=== PATIENT | female | born 1980 | race Hispanic/Latino ===

== ENCOUNTER 2017-03-02 18:48 | Emergency (ER) | payer OTHER ==
[2017-03-02 18:48] VITALS: BMI 26.4
[2017-03-02 19:40] LABS: RBC URINE 8 /hpf (0-3); TRANSITIONAL EPITHIAL < 1 /hpf (0-3); URINE BACTERIA OCC (<OCC); URINE BILIRUBIN NEGATIVE (NEGATIVE); URINE BLOOD 3+ (NEGATIVE); URINE COLOR Yellow (YELLOW); URINE GLUCOSE (UA) NORMAL (Normal); URINE KETONE TRACE mg/dL (NEGATIVE); URINE LEUKOCYTE ESTERASE NEG Leu/uL (Negative); URINE PROTEIN 1+ mg/dL (NEGATIVE); URINE UROBILINOGEN NORMAL mg/dL (0.2-1.0); WBC URINE 3 /hpf (0-5)
--- NOTE | 2017-03-02 20:00 | C.PDOC ---
History Of Present Illness 36 y/o female presents to ED with complaints of vaginal bleeding. Patient states her menses started on 02/10/17 then stopped, returned on 02/17/17 and has not stopped bleeding since then. Patient reports using 4-6 pads daily for the bleeding and has developed abdominal pain with associated cramping. Patient denies chills, fever N/V/D or any other complaints at this time. Time Seen by Provider: 03/02/17 20:00 Chief Complaint (Nursing): Female Genitourinary History Per: Patient History/Exam Limitations: no limitations Onset/Duration Of Symptoms: Days Current Symptoms Are (Timing): Still Present Quality Of Discomfort: Cramping Associated Symptoms: denies: Fever, Chills, Nausea, Vomiting Recent travel outside of the [place]: No Additional History Per: Patient Abnormal Vaginal Bleeding: Yes Past Medical History Reviewed: Historical Data, Nursing Documentation, Vital Signs Vital Signs: Last Vital Signs Temp 98.6 F 03/02/17 18:58 Pulse 95 H 03/02/17 18:58 Resp 20 03/02/17 18:58 BP 119/77 03/02/17 18:58 Pulse Ox 97 03/02/17 20:22 - Medical History PMH: Hypothyroidism Denies: Chronic Kidney Disease Surgical History: Endoscopy Family History: States: Unknown Family Hx - Social History Hx Tobacco Use: No Hx Alcohol Use: No Hx Substance Use: No - Immunization History Hx Tetanus Toxoid Vaccination: No Hx Influenza Vaccination: No Hx Pneumococcal Vaccination: No Review Of Systems Constitutional: Negative for: Fever, Chills Gastrointestinal: Positive for: Abdominal Pain. Negative for: Nausea, Vomiting , Diarrhea Genitourinary: Positive for: Vaginal Bleeding. Negative for: Dysuria Musculoskeletal: Negative for: Back Pain Skin: Negative for: Rash Neurological: Negative for: Headache Physical Exam - Physical Exam Appears: Non-toxic, No Acute Distress Skin: Warm Head: Normacephalic Oral Mucosa: Moist Neck: Supple Cardiovascular: Rhythm Regular, No Murmur Respiratory: No Rales, No Rhonchi, No Wheezing Gastrointestinal/Abdominal: Tenderness (Suprapubic Tenderness), No Guarding, No Rebound Back: No CVA Tenderness Extremity: No Pedal Edema, Capillary Refill (<2 seconds) Extremity: Bilateral: Atraumatic Neurological/Psych: Oriented x3, Normal Speech, Normal Cognition Gait: Steady ED Course And Treatment - Laboratory Results Result Diagrams: 03/02/17 20:22 03/02/17 20:22 O2 Sat by Pulse Oximetry: 97 (RA) Pulse Ox Interpretation: Normal Medical Decision Making Medical Decision Making: Upon provider reevaluation patient is feeling better, is medically stable, and requires no further treatment in the ED at this time. Patient will be discharged home . Counseling was provided and all questions were answered regarding diagnosis and need for follow up with the referred clinic. There is agreement to discharge plan. Return if symptoms persist or worsen. Disposition Counseled Patient/Family Regarding: Studies Performed, Diagnosis, Need For Followup - Disposition Referrals: Huseyin Donohue MD [Medical Doctor] - Disposition: HOME/ ROUTINE Disposition Time: 20:00 Condition: FAIR Instructions: Dysfunctional Uterine Bleeding (ED) - Clinical Impression Clinical Impression: DUB (dysfunctional uterine bleeding) - Scribe Statement The provider has reviewed the documentation as recorded by the Scribmarcelo Jefferson All medical record entries made by the Scribe were at my direction and personally dictated by me. I have reviewed the chart and agree that the record accurately reflects my personal performance of the history, physical exam, medical decision making, and the department course for this patient. I have also personally directed, reviewed, and agree with the discharge instructions and disposition.
[2017-03-02] MEDS ORDERED: Sodium Chloride 0.9% 1,000 ML IV ONE (20:01)
[2017-03-02] MEDS ORDERED: Sodium Chloride 0.9% 1,000 ML ONE (20:24)
[2017-03-02 20:34] LABS: CHLORIDE 103 mmol/L (98-107)
[2017-03-02 20:35] LABS: POTASSIUM 3.6 mmol/L (3.6-5.2); SODIUM 141 mmol/L (132-148)
[2017-03-02 20:37] LABS: ALB/GLOB RATIO 1.3 (1.0-2.1); AST/SGOT 23 U/L (14-36); BILIRUBIN,TOTAL 0.6 mg/dL (0.2-1.3); CARBON DIOXIDE 28 mmol/L (22-30); GFR AFRICAN-AMERICAN > 60; TOTAL PROTEIN 7.6 g/dL (6.3-8.3)
[2017-03-02 20:38] LABS: ALKALINE PHOSPHATASE 54 U/L (38-126); ALT/SGPT 26 U/L (9-52); BLOOD UREA NITROGEN 19 mg/dL (7-17); CALCIUM 8.9 mg/dl (8.6-10.4); GLUCOSE,RANDOM 95 mg/dL (65-105)
[2017-03-02 20:39] LABS: BASO % 0.2 % (0.0-2.0); EOS # 0.2 K/uL (0.0-0.7); EOS % 2.4 % (0.0-4.0); LYMPH # 2.6 K/uL (1.0-4.3); LYMPH % 26.7 % (20.0-40.0); MEAN CELL VOLUME 90.7 fL (81.0-99.0); MEAN CORPUSCULAR HEMOGLOBIN 29.9 pg (27.0-31.0); MEAN PLATELET VOLUME 8.5 fL (7.2-11.7); MONO # 0.7 K/uL (0.0-0.8); MONO % 7.3 % (0.0-10.0); RED CELL DISTRIBUTION WIDTH 12.2 % (11.5-14.5); WHITE BLOOD COUNT 9.9 K/uL (4.8-10.8)
[2017-03-02 22:19] VITALS: BP 107/70; PULSE 74; RESP 18; TEMP 98; O2SAT 99
--- NOTE | 2017-03-03 10:13 | US ---
Pelvic ultrasound History: Dysfunctional uterine bleeding. Comparison: None available. Technique: Real-time sonography was performed through the pelvis utilizing transabdominal and transvaginal techniques. Findings: Uterus: 8.3 x 4.2 x 5.3 centimeters. Heterogeneous echotexture. Anteverted. Endometrium measures 4.2 millimeters, within limits. At the level of the cervix, there are multiple complex heterogeneous cystic foci measuring up to 1.7 x 1.3 x 1.5 centimeters and 1.3 x 1.0 x 1.2 centimeters which may represent complex nabothian cysts. Clinical correlation. Right ovary: 2.9 x 1.7 x 2.3 centimeters. Normal flow. Left ovary: 2.8 x 2.3 x 2.5 centimeters. Normal flow. Hypoechoic cyst measuring 1.4 x 1.8 x 1.4 centimeters. Impression: Suggestion of complex nabothian cysts at the level of the cervix. Clinical correlation. 1.8 centimeter left ovarian cyst. These findings were preliminarily reported at 9:38 p.m. on 03/02/[address] Xiomara Reddy from [facility].
== END 2017-03-02 22:23 | disposition home or self-care (01) ==
LOC: C.ER 18:48
DX: N93.8 Other specified abnormal uterine and vaginal bleeding (principal)
CPT/HCPCS: 76830; 76856; 80053; 81001; 84703; 85025; 86850; 86900; 96361; 96374; 99284; J1885; J7040

== ENCOUNTER 2017-10-06 18:21 | Emergency (ER) | payer MEDICAID, OTHER ==
[2017-10-06 18:22] VITALS: BMI 26.4
--- NOTE | 2017-10-06 19:23 | C.PDOC ---
History Of Present Illness 37 year old female presents to the ED c/o right foot pain that worsens with movement and walking. Patient reports she twisted her right ankle 2 weeks ago, this is the same foot were she had bunionectomy couple years ago. Patient denies weakness, numbness, prior injury, fall, trauma. Time Seen by Provider: 10/06/17 19:12 Chief Complaint (Nursing): Lower Extremity Problem/Injury History Per: Patient History/Exam Limitations: no limitations Onset/Duration Of Symptoms: Days Current Symptoms Are (Timing): Still Present Recent travel outside of the [place] States: No Additional History Per: Patient - Ankle/Foot Description Of Injury: Twisted Currently Unable To: Bend Or Move Past Medical History Reviewed: Historical Data, Nursing Documentation, Vital Signs Vital Signs: Last Vital Signs Temp 98 F 10/06/17 20:08 Pulse 73 10/06/17 20:08 Resp 18 10/06/17 20:08 BP 109/76 10/06/17 20:08 Pulse Ox 100 10/06/17 20:08 - Medical History PMH: Hypothyroidism, Sexually Transmitted Disease Surgical History: Endoscopy Other Surgeries: bunionectomy Family History: States: Unknown Family Hx - Social History Hx Tobacco Use: No Hx Alcohol Use: No Hx Substance Use: No - Immunization History Hx Tetanus Toxoid Vaccination: No Hx Influenza Vaccination: No Hx Pneumococcal Vaccination: No Review Of Systems Constitutional: Negative for: Fever, Chills Cardiovascular: Negative for: Chest Pain, Palpitations Respiratory: Negative for: Cough, Shortness of Breath Gastrointestinal: Negative for: Nausea, Vomiting, Abdominal Pain Musculoskeletal: Positive for: Foot Pain Skin: Negative for: Rash Neurological: Negative for: Weakness, Numbness Physical Exam - Physical Exam Appears: Non-toxic, No Acute Distress Skin: Normal Color, Warm, Dry Head: Atraumatic, Normacephalic Eye(s): bilateral: Normal Inspection Nose: No Discharge, No Deformity Oral Mucosa: Moist Neck: Normal ROM Chest: Symmetrical Extremity: Normal ROM, Tenderness (mild to the right forefoot and medial aspect right foot), No Calf Tenderness, Capillary Refill (< 2 seconds), No Deformity, No Swelling Pulses: Left Dorsalis Pedis: Normal, Right Dorsalis Pedis: Normal Neurological/Psych: Oriented x3, Normal Speech Gait: Steady ED Course And Treatment O2 Sat by Pulse Oximetry: 99 (On RA) Pulse Ox Interpretation: Normal Medical Decision Making Medical Decision Making: Impression: foot injury Plan: Xray of foot Progress: xray shows no fracture, screws intact from prior sx. no soft tissue swelling Re-eval: patient sitting comfortably in no distress. advise to take Motrin or Tylenol for pain. Can follow up with podiatry Disposition Counseled Patient/Family Regarding: Diagnosis, Need For Followup, Rx Given - Disposition Disposition: HOME/ ROUTINE Disposition Time: 20:00 Condition: GOOD Additional Instructions: Your xray was normal, no fracture. PTake Motrin as needed for pain every 6 hours , with food to not upset stomach. Follow up with orthopedic or hotel engineer if pain persists over one week. Prescriptions: Ibuprofen [Motrin] 600 mg PO Q8 #30 tab Instructions: Foot Sprain (ED) Forms: [facility] (Surinamese) - POA Present On Arrival: None - Clinical Impression Clinical Impression: Foot sprain - PA / ENGRAVER [employer]ANTO[employer] / Resident Statement MD/DO has reviewed & agrees with the documentation as recorded. - Scribe Statement The provider has reviewed the documentation as recorded by the Scribe David Shukla All medical record entries made by the Dinoibmarcelo were at my direction and personally dictated by me. I have reviewed the chart and agree that the record accurately reflects my personal performance of the history, physical exam, medical decision making, and the department course for this patient. I have also personally directed, reviewed, and agree with the discharge instructions and disposition.
[2017-10-06 20:09] VITALS: BP 109/76; PULSE 73; RESP 18; TEMP 98
[2017-10-06 20:20] VITALS: O2SAT 99
--- NOTE | 2017-10-07 07:17 | RAD ---
Right foot three views History: Injury. Comparison: None available. Findings: Prior hallux valgus repair with screws seen within the 1st metatarsal head. No evidence for acute displaced fracture or dislocation. Question minimal cortical prominence seen at the medial cortex of the 2nd metatarsal base. Clinical correlation to site of pain. Correlation with MRI may be helpful if clinically indicated. Impression: Question minimal cortical prominence seen at the medial cortex of the 2nd metatarsal base. Correlation with MRI may be helpful if clinically indicated given proximity of the Lisfranc ligament. Clinical correlation.
== END 2017-10-06 20:08 | disposition home or self-care (01) ==
LOC: C.ER 18:21
DX: S93.601A Unspecified sprain of right foot, initial encounter (principal); X50.9XXA Other and unspecified overexertion or strenuous movements or postures, initial encounter